=== PATIENT | female | born 1985 | race Caucasian/White ===

== ENCOUNTER 2018-11-08 20:00 | Emergency (ER) | payer MEDICAID, SELFPAY ==
[2018-11-08 20:01] VITALS: BP 161/90; PULSE 83; RESP 15; TEMP 36.7; O2SAT 98; BMI 54.8
--- NOTE | 2018-11-08 20:33 | RAD_ITS ---
STUDY: X-RAY - LEFT KNEE REASON FOR EXAM: Female, 33 years old. LEFT KNEE PAIN. REPORTS HER KNEE GAVE OUT EARLIER TODAY WHILE WALKING UP THE STAIRS TECHNIQUE: 4 view(s) of the knee. COMPARISON: None. FINDINGS: Normal visualized distal femur. Normal visualized proximal tibia and fibula. Normal proximal tibiofibular articulation. Normal medial femorotibial compartment. Normal lateral femorotibial compartment. 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 No sizable joint effusion. The soft tissue structures are unremarkable. RAD/Knee 4 or More Views IMPRESSION: No fracture or malalignment. Electronically Signed: Shane Jackson MD ([place]) at 21:03 EDT , Service support ,
--- NOTE | 2018-11-08 20:34 | ED.VIS.GEN ---
History of Present Illness Chief Complaint: Lower Extremity Injury Informant: Patient Onset: Today Current Severity: Mild Narrative: Patient complains of left knee pain that occurred today when she was walking up stairs she immediately felt the pain in her knee the cause of trouble walking history same knee of meniscus injury for which she was seen by orthopedics in the past had physical therapy no direct trauma no numbness weakness paresthesias Past Medical History - Allergies and Home Meds Allergies/Adverse Reactions: Allergies hydrocodone bitartrate [From Vicodin] Adverse Reaction (Verified 11/08/18 20:05) Nausea Primary Care Physician: Care Physician,No Primary [Primary Care Provider] - Past Medical History: - Smoking Status: Former smoker Review of Systems ROS: - See as above General: Denies: Chills, Fever, Sweats Eyes: Denies: Visual changes - bilaterally, Diplopia ENT: Denies: Rhinorrhea, Sore throat Cardiovascular: Denies: Chest pain, Palpitations Respiratory: Denies: Dyspnea, Cough, Dyspnea on exertion Gastrointestinal: Denies: Abdominal pain, Nausea, Vomiting, Diarrhea, Melena, Hematochezia Genitourinary: Denies: Dysuria, Hematuria, Frequency Musculoskeletal: Reports: Extremity Pain. Denies: Back pain Skin: Denies: Rash, Wounds Neurological: Denies: Headache, Weakness, Numbness Physical Exam Vital Signs/Narrative: Vital Signs Temp Pulse Resp BP Pulse Ox 11/08/18 20:01 98.0 F 83 15 161/90 H 98 General: Well nourished, Well developed, No Acute Distress Head: Normocephalic, Atraumatic Eyes: Perrl, EOMI ENT: Moist mucous membranes, No rhinorrhea Neck: Supple, Nontender Cardiovascular: Regular rate, Regular rhythm, No murmurs Respiratory: No distress, CTA bilaterally, Chest nontender Abdomen: Soft, Nontender, Nondistended, Normal bowel sounds Back: Nontender, Normal Inspection Extremities: No edema, - - He has nonspecific diffuse discomfort to the left knee she has near full range of motion the hip the thigh the tib-fib ankle and foot are unremarkable neurovascular function normal Skin: Normal color, No rash Neurological: Alert, Oriented x3, Cranial nerves II-XII grossly intact, Normal Strength, Normal Sensation Psychological: Normal affect, Normal Mood Diagnostic/Tx/Re-eval - Medical Decision Making X-rays obtained Toradol for pain, x-ray shows nothing acute per radiology explain the above and her she is with crutches Naprosyn for pain ice elevation she will follow-up with her outpatient providers referred to Dr. Guerrero orthopedics and return for change in symptoms understands the concept of an occult injury that will require further outpatient management Home stable Impression final Left knee injury ED Disposition - Plan for ED Patient: Diagnosis: Knee injury Instructions: KNEE PAIN, Meniscus Injury (Possible) Prescriptions: Naproxen [Naprosyn] 500 mg PO BID PRN #20 tab Prescription Printed Referrals: Care Physician,No Primary [Primary Care Provider] -
[2018-11-08] MEDS: Ketorolac 60 MG/2 ML Vial IM (20:57)
== END 2018-11-08 21:46 | disposition home or self-care (01) ==
PROVIDERS: Emergency Provider Emergency Medicine
DX: S89.92XA Unspecified injury of left lower leg, initial encounter (principal); X58.XXXA Exposure to other specified factors, initial encounter; Y93.01 Activity, walking, marching and hiking; Z87.891 Personal history of nicotine dependence
CPT/HCPCS: 73564; 96372; 99282